=== PATIENT | male | born 1955 | race Caucasian/White ===

== ENCOUNTER 2022-12-24 23:20 | Emergency (ER) | payer MEDICARE ==
[~2022-12-24] VITALS: Ht 172.7 cm; Wt 108.9 kg
[2022-12-25 02:02] LABS: BASOPHILS ABSOLUTE AUTO 0.03 K/mm3 (0.00-0.23); BASOPHILS PERCENT AUTO 0 % (0-2); EOSINOPHILS ABSOLUTE AUTO 0.05 K/mm3 (0.00-0.68); EOSINOPHILS PERCENT AUTO 1 % (0-6); Hematocrit 42.5 % (37.0-53.0); Hemoglobin 13.5 g/dL (13.5-17.5); IMMATURE GRAN ABSOLUTE AUTO 0.01 K/mm3 (0.00-0.10); IMMATURE GRAN PERCENT AUTO 0 % (0-1); LYMPHOCYTES ABSOLUTE AUTO 1.29 K/mm3 (0.84-5.20); LYMPHOCYTES PERCENT AUTO 19 % (21-46); MONOCYTES ABSOLUTE AUTO 0.61 K/mm3 (0.16-1.47); MONOCYTES PERCENT AUTO 9 % (4-13); Mean Corpuscular HGB 29.2 pg (26.0-34.0); Mean Corpuscular HGB Conc 31.8 g/dL (31.5-36.5); Mean Corpuscular Volume 92 fL (80-100); Mean Platelet Volume 9.4 fL (9.1-12.4); NEUTROPHILS ABSOLUTE AUTO 4.85 K/mm3 (1.96-9.15); NEUTROPHILS PERCENT AUTO 71 % (41-73); Platelet Count 224 K/mm3 (150-400); RDW Coefficient Variation 13.2 % (11.7-14.2); RDW Standard Deviation 44.7 fL (35.1-46.3); Red Blood Cell Count 4.63 M/mm3 (4.30-5.90); White Blood Cell Count 6.84 K/mm3 (4.00-11.30)
[2022-12-25 02:26] LABS: Alanine Aminotransfer (ALT/SGP 20 U/L (12-78); Albumin, Blood 3.4 g/dL (3.4-5.0); Albumin/Globulin Ratio 0.8 (0.8-1.8); Alk Phos 89 U/L (50-136); Anion Gap 8 mmol/L (6-16); Aspartate Aminotrans (AST/SGOT 62 U/L (12-37); Blood Urea Nitrogen 18 mg/dL (8-24); Bun/Creatinine Ratio 13.8 (12.0-20.0); CO2, Blood 21 mmol/L (21-32); Calcium, Blood 8.4 mg/dL (8.5-10.1); Chloride, Blood 114 mmol/L (98-108); Ethanol (Alcohol), Blood, Med <3 mg/dL; Globulin, Blood 4.3 g/dL (2.2-4.0); Glomerular Filtration Rate 61 (60-); Glucose, Blood 104 mg/dL (70-99); Magnesium, Blood 2.5 mg/dL (1.6-2.4); Potassium, Blood 3.5 mmol/L (3.5-5.5); Sodium, Blood 143 mmol/L (136-145); Total Protein, Blood 7.7 g/dL (6.4-8.2)
[2022-12-25 06:07] VITALS: BP 137/83
[2022-12-26] MEDS ORDERED: ISOSORBIDE MONO30 MG PO (09:05)
[2022-12-26] MEDS ORDERED: FUROSEMIDE20 MG PO (09:05)
[2022-12-26] MEDS ORDERED: Lisinopril2.5 MG PO (09:06)
[2022-12-26] MEDS ORDERED: ATOR40TA PO (09:06)
== END 2022-12-25 08:33 | disposition left against medical advice (07) ==
LOC: ER 23:20
PROVIDERS: Student in an Organized Health Care Education/Training Program
DX: R41.0 Disorientation, unspecified (principal)
CPT/HCPCS: 70450; 80053; 82140; 83735; 84439; 84443; 85025; 93005; 93010; 99285-25; J7030

== ENCOUNTER 2022-12-26 08:41 | Inpatient (IN) | payer MEDICARE ==
[~2022-12-26] VITALS: Ht 172.7 cm; Wt 112.0 kg
[2022-12-26] MEDS ORDERED: ISOSORBIDE MONO30 MG PO (09:05)
[2022-12-26] MEDS ORDERED: FUROSEMIDE20 MG PO (09:05)
[2022-12-26] MEDS ORDERED: Lisinopril2.5 MG PO (09:06)
[2022-12-26] MEDS ORDERED: ATOR40TA PO (09:06)
[2022-12-26 09:29] LABS: BASOPHILS ABSOLUTE AUTO 0.03 K/mm3 (0.00-0.23); BASOPHILS PERCENT AUTO 0 % (0-2); EOSINOPHILS ABSOLUTE AUTO 0.04 K/mm3 (0.00-0.68); EOSINOPHILS PERCENT AUTO 1 % (0-6); Hematocrit 45.7 % (37.0-53.0); Hemoglobin 14.7 g/dL (13.5-17.5); IMMATURE GRAN ABSOLUTE AUTO 0.02 K/mm3 (0.00-0.10); IMMATURE GRAN PERCENT AUTO 0 % (0-1); LYMPHOCYTES ABSOLUTE AUTO 1.28 K/mm3 (0.84-5.20); LYMPHOCYTES PERCENT AUTO 17 % (21-46); MONOCYTES ABSOLUTE AUTO 0.53 K/mm3 (0.16-1.47); MONOCYTES PERCENT AUTO 7 % (4-13); Mean Corpuscular HGB 29.3 pg (26.0-34.0); Mean Corpuscular HGB Conc 32.2 g/dL (31.5-36.5); Mean Corpuscular Volume 91 fL (80-100); Mean Platelet Volume 9.8 fL (9.1-12.4); NEUTROPHILS ABSOLUTE AUTO 5.84 K/mm3 (1.96-9.15); NEUTROPHILS PERCENT AUTO 76 % (41-73); Platelet Count 277 K/mm3 (150-400); RDW Coefficient Variation 13.2 % (11.7-14.2); RDW Standard Deviation 44.5 fL (35.1-46.3); Red Blood Cell Count 5.01 M/mm3 (4.30-5.90); White Blood Cell Count 7.74 K/mm3 (4.00-11.30)
[2022-12-26 09:57] LABS: Albumin, Blood 3.7 g/dL (3.4-5.0); Albumin/Globulin Ratio 0.8 (0.8-1.8); Bun/Creatinine Ratio 14.5 (12.0-20.0); Calcium, Blood 9.1 mg/dL (8.5-10.1); Creatinine, Blood 1.38 mg/dL (0.60-1.20); Globulin, Blood 4.5 g/dL (2.2-4.0); Potassium, Blood 4.1 mmol/L (3.5-5.5); Total Protein, Blood 8.2 g/dL (6.4-8.2)
[2022-12-26 11:46] LABS: Anti-Xa UFH, PHA Monitoring <0.10 IU/mL; International Normalized Ratio 1.07; Prothrombin Time Results 11.2 Sec (9.7-11.5)
[2022-12-26 13:42] LABS: Free Thyroxine 0.88 ng/dL (0.70-1.60); Magnesium, Blood 2.4 mg/dL (1.6-2.4); Phosphorus, Blood 2.7 mg/dL (2.5-4.9); Thyroid Stimulating Hormone 12.9 uIU/mL (0.360-4.800)
[2022-12-26 14:12] VITALS: BP 165/116
--- NOTE | 2022-12-26 14:46 | NUR ---
NURSING PCU DAYSHIFT: Assumed care of pt at approx 1400. Arrived from ER via gurney accompanied by staff x1. Xfer w/SBA to unit bed. Mild general weakness though able to stand w/o difficulty. Able to answer most questions appropriately though is confused/forgetful at times and is poor historian. Often talks in tangents not relating to current topic or question, needs frequent redirection. Skin pale/fragile though intact w/no breakdown noted. Tele in place, NSR, no c/o CP/pressure, hypertensive, c/o 3/10 CP radiating across chest below nipple line, no noted edema. L/S cta t/o, O2 sat upper 90's on RA, denies dyspnea, no noted cough. Abd SNT, BT+, voids w/o difficulty per pt. PIV x1 at time of arrival, hep gtt infusing. No s/s of acute distress at this time. Admitting orders reviewed, cardiology consult called, 2nd PIV started, awaiting urine specimen as per d/o. Pt denies any current needs/questions, call light in reach, bed alarm set for safety purposes. Awaiting rounding from cardiology, cont to monitor for any changes.
--- NOTE | 2022-12-26 15:35 | NUR ---
XFER OF CARE: Report given to peer RN to assume care. No noted changes since admission.
--- NOTE | 2022-12-26 16:00 | NUR ---
Assumed care from Liz RN. Patient is alert and oriented and is able to communiocate his needs. He is independnet in bed with positioning. He uses call light appropriately.He states 4/10 chest pressure.
[2022-12-26 17:06] LABS: U Amphetamine Screen Not Detected; U Barbituate Screen Not Detected; U Benzodiazapine Screen Not Detected; U Buprenorphine Screen Not Detected; U Cannabinoids Screen DETECTED; U Cocaine Screen Not Detected; U Methadone Screen Not Detected; U Methamphetamine Screen Not Detected; U Opiates Screen Not Detected; U Oxycodone Screen Not Detected; U Phencyclidine Screen Not Detected; U Propoxyphene Screen Not Detected
--- NOTE | 2022-12-26 17:50 | NUR ---
Patient is sitting up in bed eating dinner. He is NPO after midnight for angio 12/27. Dr Jackson was in room and consented him and i witnessed. He has urinal at bedside and is able to use. He states odd subjects and has poor recall, and is poor historian of events prior to today. He is very flip about what he wants done as he continues to state he is ok if he dies, but did agree for angio to see what is going on. He is on RA and sats >90%. He continues to be independent with positioning. ECHO done [address] Jackson visit.
[2022-12-26 19:38] VITALS: BP 122/75
[2022-12-26 20:55] VITALS: BP 141/94
--- NOTE | 2022-12-26 21:11 | NUR ---
ASSUMPTION OF CARE THIS RN ASSUMED CARE OF PATIENT AT 1900. REPORT TAKEN FROM YADIRA MILLER. VITALS STABLE AFTER SHIFT CHANGE. PT ORIGINALLY REPORTING 3-4/10 CHEST PAIN BUT STATED IT WASN'T "BAD ENOUGH TO CARE ABOUT" AND DENIED NEEDING NITRO. AROUND 2049 PT REPORTED SOB AND 7/10 RADIATING CHEST PAIN. SL NITRO X3 GIVEN PER ORDER; SEE EMAR; PT NOW REPORTS CHEST PAIN IS RELIEVED. PT IS ALERT AND ORIENTED TO SELF, PLACE, AND YEAR. PT WITH TANGENTIAL SPEECH AND APPEARS TO BE CONFUSED ABOUT SITUATION, DESPITE KNOWING THAT HE IS IN THE HOSPITAL. PT ASKING THIS RN IF I HAVE ACCESS TO FAMILY PHOTOS ON THE COMPUTER AND STATES THAT HE DOES NOT KNOW HOW TO GET AHOLD OF ANY OF HIS FRIENDS/FAMILY. PT DENIES ALCOHOL USE AND STATES IT HAS BEEN "MONTHS" SINCE HIS LAST DRINK, HOWEVER, STATES HE "LOVES TO DRINK". PT USING URINAL INDEPENDENTLY, BUT REFUSES FOR THIS RN OR THE MONUMENT LETTERER TO CLEAN OR SEE [facility] [facility]. PT HAS BEEN COOPERATIVE WITH CARE SO FAR THIS SHIFT. BED IN LOWEST POSITION AND CALL LIGHT WITHIN REACH.
[2022-12-26 23:46] VITALS: BP 134/92
[2022-12-27 04:05] VITALS: BP 147/85
[2022-12-27 04:32] LABS: Hemoglobin 13.2 g/dL (13.5-17.5); Mean Corpuscular HGB 29.5 pg (26.0-34.0); Mean Corpuscular HGB Conc 32.2 g/dL (31.5-36.5); Mean Corpuscular Volume 92 fL (80-100); Mean Platelet Volume 9.7 fL (9.1-12.4); Platelet Count 238 K/mm3 (150-400); RDW Coefficient Variation 13.2 % (11.7-14.2); RDW Standard Deviation 44.9 fL (35.1-46.3); Red Blood Cell Count 4.48 M/mm3 (4.30-5.90); White Blood Cell Count 5.73 K/mm3 (4.00-11.30)
--- NOTE | 2022-12-27 04:36 | NUR ---
SHIFT SUMMARY SEE PREVIOUS NOTE. PT HAS DENIED CHEST PAIN/PRESSURE SINCE PREVIOUS NOTE. REPORTS CHRONIC BACK PAIN; MEDICATED PER EMAR. SR WITH HR 60'S. ON RA WITH SPO2 >92%. BP STABLE. HEP GTT INFUSING PER EMAR. AMBULATED TO BATHROOM WITH STAFF ASSISTANCE. NO CHANGES TO NEURO. PT CONTINUES TO HAVE INAPPROPRIATE CONVERSATION. CONFUSION/PARANOID AT TIMES. PT HAS BEEN MOSTLY COOPERATIVE WITH CARE AND CALLS APPROPRIATELY. BED IN LOWEST POSITION AND CALL LIGHT WITHIN REACH. PT HAS BEEN NPO SINCE MIDNIGHT. THIS RN WILL REPORT TO ONCOMING DAYSHIFT RN.
[2022-12-27 05:04] LABS: Alanine Aminotransfer (ALT/SGP 21 U/L (12-78); Albumin, Blood 3.1 g/dL (3.4-5.0); Albumin/Globulin Ratio 0.8 (0.8-1.8); Alk Phos 83 U/L (50-136); Anion Gap 8 mmol/L (6-16); Aspartate Aminotrans (AST/SGOT 34 U/L (12-37); Bilirubin, Total 0.7 mg/dL (0.1-1.0); Blood Urea Nitrogen 19 mg/dL (8-24); Bun/Creatinine Ratio 14.7 (12.0-20.0); CHOL/HDL RATIO 2.6; CO2, Blood 22 mmol/L (21-32); Calcium, Blood 8.7 mg/dL (8.5-10.1); Chloride, Blood 113 mmol/L (98-108); Cholesterol 82 mg/dL (50-200); Creatinine, Blood 1.29 mg/dL (0.60-1.20); Glomerular Filtration Rate 61 (60-); Glucose, Blood 104 mg/dL (70-99); HDL Cholesterol 31 mg/dL (>39); LDL/HDL RATIO 1.2; Low Density Lipoprotein Chol 37 mg/dL (0-110); Potassium, Blood 3.9 mmol/L (3.5-5.5); Sodium, Blood 143 mmol/L (136-145); Total Protein, Blood 7.1 g/dL (6.4-8.2); Triglycerides 70 mg/dL (30-160); Very Low Density Lipoprot Chol 14 mg/dL (6-32)
[2022-12-27 07:51] VITALS: BP 182/106
--- NOTE | 2022-12-27 09:41 | NUR ---
ASSUMED CARE OF PT AT 0710. PT IS AOX3-4, PLEASANT, COOPERATIVE WITH CARE THUS FAR. FLIGHT OF IDEAS AND VERY TALKATIVE. CAN BE SOMEWHAT LABILE AND MAKE INAPPROPRIATE COMMENTS BUT OVERALL IS VERY PLEASANT AND COOPERATIVE. SATTING WELL ON ROOM AIR. 1 PERSON ASSIST TO CHAIR. REMAINS NPO PENDING PROCEDURE TODAY BUT TOOK PO MEDS THIS MORNING WITH A BIT OF WATER. TELE ON WITH NO EVENTS THUS FAR. BP WAS MILDLY ELEVATED ON MORNING VITALS, DISCUSSED WITH ORIENTING NURSE ZOHAIB SALCEDO WHO INFORMED ADMINISTERED LOPRESSOR WOULD BE SUFFICIENT FOR MANAGEMENT. DR. DAVID THEN ORDERED AN ADDITIONAL PO DOSE WHICH WAS ADMINISTERED. PT NOW RESTING COMFORTABLY IN BED.
[2022-12-27 11:43] VITALS: BP 172/96
[2022-12-27 16:25] VITALS: BP 118/77
--- NOTE | 2022-12-27 17:08 | NUR ---
SHIFT SUMMARY. SEE PREVIOUS NOTE. PT HAD PSYCH CONSULT EARLIER TODAY WITH DR. MERA. SEE HIS NOTE FOR EXPANDED DETAILS. ANGIOGRAM FOR TODAY WAS CANCELLED AFTER PT VOICED NO INTENT TO PERFORM FOLLOW UP CARE. DIET ORDERS PUT IN PLACE AND PT IS NOW ON CARDIAC DIET. PT CONSULT ORDERED BY DR. DAVID DUE TO PT CONCERN. PT CONSULT WAS PERFORMED AND PT WAS CLEARED TO AMBULATE WITH CANE ON DISCHARGE. NO PAIN REPORTED THIS SHIFT. PT HAS CONTINUED TO SAT WELL ON ROOM AIR. TELE ON WITH NO EVENTS THIS SHIFT. BP WAS ELEVATED THROUGHOUT MOST OF SHIFT BUT HAS SINCE BEEN WELL CONTROLLED VIA PO METOPROLOL ORDERED BY DR. DAVID. MEDICAL RECORD REQUEST FAXED TO [facility] TO ACQUIRE RECORDS FROM HIS RECENT HOSPITALIZATION IN [place]. PT IS NOW SLEEPING COMFORTABLY IN BED. CALLS APPROPRIATELY FOR ASSISTANCE. BED LOCKED IN LOWEST POSITION. CALL LIGHT LEFT WITHIN REACH.
--- NOTE | 2022-12-27 19:21 | NUR ---
Update Pt self removed heparin gtt & telemetry. Pt reporting decision to leave, stating it's too loud here & his room isn't warm enough. Pt is homeless & denies having a ride or place to go. MD Crooks notified of pt desire to leave AMA. After further discussion w/ pt, pt agreeable to remain in hospital overnight. Pt however refusing to have heparin gtt & telemetry back on. MD Crooks again updated. Pharmacy also updated that pt has been off heparin gtt since about 1900 & is refusing to resume heparin gtt.
[2022-12-27 20:26] VITALS: BP 130/80
--- NOTE | 2022-12-27 20:49 | NUR ---
ASSUMPTION OF CARE/PATIENT UPDATE THIS RN ASSUMED CARE OF PATIENT AT 1900. PT A&O X4, CONFUSED ON SPECIFIC DAY, KNOWS YEAR/MONTH. PT PARANOID AND AGGITATED BY STAFF. PT REPORTED THAT HE WAS GOING TO LEAVE AMA, BUT AGREED TO STAY THE NIGHT. PT REFUSING TO WEAR TELE AND STAY ON HEPARIN GTT. MD GONZALEZ MADE AWARE. MD GONZALEZ WITH ORDER TO MAKE PT PCU WITH NO TELE STATUS. MD GONZALEZ VERBALIZED UNDERSTANDING THAT THE PT WAS REFUSING HEPARIN. MD GONZALEZ TO BEDSIDE TO ASSESS PATIENT; MD GONZALEZ WITH ORDERS FOR PO ATIVAN FOR SLEEP/ANXIETY. HRR REG IN THE 60'S. ON RA WITH SPO2 >94%; REFUSED TO KEEP PULSE OX ON FINGER FOR MONITORING THROUGH THE NIGHT. BP STABLE. PT DENIES CHEST PAIN AT THIS TIME. REPORTING BACK PAIN WHICH APPEARS TO BE CHRONIC. RESPIRATIONS EVEN/UNLABORED. TANGENTIAL SPEECH NOTED. PT IS DIFFICULT TO FOCUS ATTENTION. EASILY AGGITATED BY ASSESSMENT DONE BY NURSE. BED IN LOWEST POSITION AND CALL LIGHT WITHIN REACH.
[2022-12-28 00:13] VITALS: BP 149/106
[2022-12-28 02:40] VITALS: BP 171/107
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
[2022-12-28 06:06] VITALS: BP 152/110
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
--- NOTE | 2022-12-28 06:47 | NUR ---
UPDATE PT REPORTED TO CLINICAL COORDINATOR CRISS MILLER THAT HE WOULD LIKE TO LEAVE AMA. PT SIGNED AMA FORM. THIS RN REMOVED BOTH IV'S. CRISS MILLER ASSISTING PATIENT WITH BELONGINGS AND TAKING PATIENT OUT IN WHEELCHAIR. PT REPORTS SORENESS IN BACK, XRAY CLEAR PER MD HANSON. NO OTHER ACUTE DISTRESS NOTED.
[2022-12-29] MEDS ORDERED: ASPI81CH PO (09:58)
[2022-12-29] MEDS ORDERED: CARV6.25 PO (09:59)
== END 2022-12-28 07:13 | disposition left against medical advice (07) | DRG 281 ==
LOC: ER 08:41 → PCU 12:35
PROVIDERS: Emergency Medicine; ADMIT Internal Medicine
DX: I21.4 Non-ST elevation (NSTEMI) myocardial infarction (principal); N17.9 Acute kidney failure, unspecified; Z59.00 Homelessness unspecified; Z66 Do not resuscitate; I10 Essential (primary) hypertension; E66.9 Obesity, unspecified; Z68.34 Body mass index [BMI] 34.0-34.9, adult; I27.20 Pulmonary hypertension, unspecified; I08.1 Rheumatic disorders of both mitral and tricuspid valves; R94.31 Abnormal electrocardiogram [ECG] [EKG]; E03.8 Other specified hypothyroidism; R74.01 Elevation of levels of liver transaminase levels; G47.00 Insomnia, unspecified; F03.90 Unspecified dementia, unspecified severity, without behavioral disturbance, psychotic disturbance, mood disturbance, and anxiety; F31.9 Bipolar disorder, unspecified; I16.0 Hypertensive urgency; F41.9 Anxiety disorder, unspecified; Z53.29 Procedure and treatment not carried out because of patient's decision for other reasons; F12.90 Cannabis use, unspecified, uncomplicated; Z79.01 Long term (current) use of anticoagulants; Z79.899 Other long term (current) drug therapy; Z87.891 Personal history of nicotine dependence
CPT/HCPCS: 36415; 71045; 72100; 80053; 80061; 83735; 83880; 84100; 84439; 84443; 84484; 85025; 85027; 85379; 85520; 85610; 85730; 93005; 93010; 93306; 96365; 96366; 96376; 97116; 97162; 99285-25; A9270; J1644

== ENCOUNTER 2022-12-28 18:03 | Observation (INO) | payer MEDICARE ==
[~2022-12-28] VITALS: Ht 175.3 cm; Wt 112.0 kg
[~2022-12-28 18:03] MED LIST: ATOR40TA PO; FUROSEMIDE20 MG PO; ISOSORBIDE MONO30 MG PO; Lisinopril2.5 MG PO
[2022-12-28 18:32] LABS: BASOPHILS ABSOLUTE AUTO 0.02 K/mm3 (0.00-0.23); BASOPHILS PERCENT AUTO 0 % (0-2); EOSINOPHILS ABSOLUTE AUTO 0.04 K/mm3 (0.00-0.68); EOSINOPHILS PERCENT AUTO 1 % (0-6); Hematocrit 40.9 % (37.0-53.0); Hemoglobin 12.9 g/dL (13.5-17.5); IMMATURE GRAN ABSOLUTE AUTO 0.02 K/mm3 (0.00-0.10); IMMATURE GRAN PERCENT AUTO 0 % (0-1); LYMPHOCYTES PERCENT AUTO 13 % (21-46); MONOCYTES PERCENT AUTO 6 % (4-13); Mean Corpuscular HGB Conc 31.5 g/dL (31.5-36.5); Mean Corpuscular Volume 92 fL (80-100); Mean Platelet Volume 9.8 fL (9.1-12.4); NEUTROPHILS ABSOLUTE AUTO 5.44 K/mm3 (1.96-9.15); NEUTROPHILS PERCENT AUTO 80 % (41-73); Platelet Count 250 K/mm3 (150-400); RDW Coefficient Variation 13.2 % (11.7-14.2); RDW Standard Deviation 45.1 fL (35.1-46.3); Red Blood Cell Count 4.45 M/mm3 (4.30-5.90); White Blood Cell Count 6.82 K/mm3 (4.00-11.30)
[2022-12-28 18:47] LABS: Albumin, Blood 3.1 g/dL (3.4-5.0); Albumin/Globulin Ratio 0.8 (0.8-1.8); Bilirubin, Total 0.7 mg/dL (0.1-1.0); Bun/Creatinine Ratio 15.8 (12.0-20.0); Calcium, Blood 8.6 mg/dL (8.5-10.1); Creatinine, Blood 1.2 mg/dL (0.60-1.20); Magnesium, Blood 2.1 mg/dL (1.6-2.4); Potassium, Blood 3.8 mmol/L (3.5-5.5); Total Protein, Blood 7.1 g/dL (6.4-8.2)
[2022-12-28 19:55] LABS: Base Excess Venous -0.3 mmol/L; PCO2 Venous 48.8 mmHg (38-42); pH Blood Venous 7.33 (7.34-7.37)
[2022-12-28 23:46] VITALS: BP 160/105
[2022-12-29 03:39] VITALS: BP 146/84
[2022-12-29 05:36] LABS: BASOPHILS ABSOLUTE AUTO 0.02 K/mm3 (0.00-0.23); BASOPHILS PERCENT AUTO 0 % (0-2); EOSINOPHILS ABSOLUTE AUTO 0.08 K/mm3 (0.00-0.68); EOSINOPHILS PERCENT AUTO 2 % (0-6); Hematocrit 41.7 % (37.0-53.0); Hemoglobin 13.3 g/dL (13.5-17.5); IMMATURE GRAN ABSOLUTE AUTO 0.02 K/mm3 (0.00-0.10); IMMATURE GRAN PERCENT AUTO 0 % (0-1); LYMPHOCYTES ABSOLUTE AUTO 1.36 K/mm3 (0.84-5.20); LYMPHOCYTES PERCENT AUTO 25 % (21-46); MONOCYTES ABSOLUTE AUTO 0.42 K/mm3 (0.16-1.47); MONOCYTES PERCENT AUTO 8 % (4-13); Mean Corpuscular HGB Conc 31.9 g/dL (31.5-36.5); Mean Corpuscular Volume 91 fL (80-100); Mean Platelet Volume 9.8 fL (9.1-12.4); NEUTROPHILS PERCENT AUTO 65 % (41-73); Platelet Count 260 K/mm3 (150-400); RDW Coefficient Variation 13.2 % (11.7-14.2); RDW Standard Deviation 44.4 fL (35.1-46.3); Red Blood Cell Count 4.58 M/mm3 (4.30-5.90)
[2022-12-29 06:37] LABS: Bun/Creatinine Ratio 13.2 (12.0-20.0); Calcium, Blood 9.2 mg/dL (8.5-10.1); Creatinine, Blood 1.29 mg/dL (0.60-1.20); Potassium, Blood 3.4 mmol/L (3.5-5.5)
--- NOTE | 2022-12-29 07:31 | NUR ---
PT REQUESTING TO MOVE TO BEDSIDE CHAIR. PT REPORTS RIGHT UPPER CHEST PAIN WHICH HE DESCRIBES TIGHTNESS. WHEN ASKED IF HE WAS DIZZY OR LIGHTHEADED PT STATED "I'M BLONDE, I'M ALWAYS DIZZY". NO HEART RHYTHM CHANGES PER TIE IN MACHINE OPERATOR. PT ABLE TO MOVE HIMSELF TO THE RECLINER WITH STANDBY ASSIST ONLY.
--- NOTE | 2022-12-29 07:35 | NUR ---
Shift Summary Pt admitted from ED for chest pain. Pt stated 8/10 chest pain, rcvd IV morphine and during reassessment said pain was still 8/10 while appearing completely comfortable. Pt hallucinated a spider crawling across the ceiling, and when asked about ETOH stated he drinks a 5th a day. Pt scored 5 on CIWA assassment. Pt is AOx3, sometimes unsure about the time. On tele running sinus rythm, no event calls from telemetry. Troponin is trending down from last admit 2 days ago, which per report was 1200, it was at 316 on admit to this unit.
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
[2022-12-29] MEDS ORDERED: ASPI81CH PO ×2 (09:58)
[2022-12-29] MEDS ORDERED: CARV6.25 PO ×2 (09:59)
--- NOTE | 2022-12-29 11:47 | NUR ---
DISCHARGE INSTRUCTIONS DISCUSSED WITH PT AND PRINTED COPY GIVEN TO PT. PRESCRIPTIONS FAXED TO [facility] AT PT'S REQUEST. PT REQUESTED [facility] TO TAKE HIM TO THE HOTEL NEXT TO [facility]. APPRECIATE SECURITY TRANSPORTING PT TO [facility] TO AWAIT ARRIVAL OF TAX[facility]. ALL PERSONAL BELONGINGS SENT WITH PT. IV'S REMOVED.
== END 2022-12-29 11:52 | disposition home or self-care (01) ==
LOC: ER 18:03 → MEDS 18:04 → ENPENDDIS 12-29 08:18 → MEDS 12-29 11:52
PROVIDERS: Student in an Organized Health Care Education/Training Program; ADMIT Internal Medicine
DX: I21.A1 Myocardial infarction type 2 (principal); I25.2 Old myocardial infarction; M48.56XA Collapsed vertebra, not elsewhere classified, lumbar region, initial encounter for fracture; R45.6 Violent behavior; Z72.0 Tobacco use; Z59.00 Homelessness unspecified; E03.8 Other specified hypothyroidism
CPT/HCPCS: 36415; 71046; 72100; 73600; 80048; 80053; 82803; 83735; 83880; 84484; 85025; 93005; 93010; 96374; 99285-25; A9270; G0378; J2270

== ENCOUNTER 2022-12-29 13:22 | Emergency (ER) | payer MEDICARE ==
[~2022-12-29] VITALS: Ht 167.6 cm; Wt 75.8 kg
[~2022-12-29 13:22] MED LIST changes: +ASPI81CH PO; +CARV6.25 PO
[2022-12-29 14:05] LABS: BASOPHILS ABSOLUTE AUTO 0.02 K/mm3 (0.00-0.23); BASOPHILS PERCENT AUTO 0 % (0-2); EOSINOPHILS PERCENT AUTO 2 % (0-6); Hematocrit 42.4 % (37.0-53.0); Hemoglobin 13.6 g/dL (13.5-17.5); IMMATURE GRAN ABSOLUTE AUTO 0.02 K/mm3 (0.00-0.10); IMMATURE GRAN PERCENT AUTO 0 % (0-1); LYMPHOCYTES ABSOLUTE AUTO 0.84 K/mm3 (0.84-5.20); LYMPHOCYTES PERCENT AUTO 14 % (21-46); MONOCYTES ABSOLUTE AUTO 0.43 K/mm3 (0.16-1.47); MONOCYTES PERCENT AUTO 7 % (4-13); Mean Corpuscular HGB 28.8 pg (26.0-34.0); Mean Corpuscular HGB Conc 32.1 g/dL (31.5-36.5); Mean Corpuscular Volume 90 fL (80-100); NEUTROPHILS ABSOLUTE AUTO 4.82 K/mm3 (1.96-9.15); NEUTROPHILS PERCENT AUTO 77 % (41-73); Platelet Count 286 K/mm3 (150-400); RDW Coefficient Variation 13.2 % (11.7-14.2); RDW Standard Deviation 43.4 fL (35.1-46.3); Red Blood Cell Count 4.73 M/mm3 (4.30-5.90); White Blood Cell Count 6.23 K/mm3 (4.00-11.30)
[2022-12-29 14:30] LABS: Albumin, Blood 3.6 g/dL (3.4-5.0); Albumin/Globulin Ratio 0.9 (0.8-1.8); Bilirubin, Total 0.9 mg/dL (0.1-1.0); Bun/Creatinine Ratio 15.3 (12.0-20.0); Calcium, Blood 9.3 mg/dL (8.5-10.1); Creatinine, Blood 1.18 mg/dL (0.60-1.20); Globulin, Blood 4.2 g/dL (2.2-4.0); Total Protein, Blood 7.8 g/dL (6.4-8.2)
[2022-12-29 15:45] VITALS: BP 186/114
== END 2022-12-29 15:58 | disposition home or self-care (01) ==
LOC: ER 13:22
PROVIDERS: Student in an Organized Health Care Education/Training Program
DX: R07.89 Other chest pain (principal); Z79.899 Other long term (current) drug therapy; Z79.82 Long term (current) use of aspirin; I10 Essential (primary) hypertension; G47.00 Insomnia, unspecified
CPT/HCPCS: 71046; 80053; 84484; 85025; 93005; 93010; 99284-25; A9270

== ENCOUNTER 2022-12-29 17:43 | Emergency (ER) | payer MEDICARE ==
[~2022-12-29] VITALS: Ht 172.7 cm; Wt 113.4 kg
[2022-12-29 18:06] VITALS: BP 161/93
== END 2022-12-29 18:08 | disposition home or self-care (01) ==
LOC: ER 17:43
DX: M54.2 Cervicalgia (principal); I10 Essential (primary) hypertension; Z91.81 History of falling; Z79.899 Other long term (current) drug therapy; Z79.82 Long term (current) use of aspirin
CPT/HCPCS: 99283

== ENCOUNTER 2022-12-29 21:35 | Emergency (ER) | payer MEDICARE ==
[~2022-12-29] VITALS: Ht 175.3 cm; Wt 104.3 kg
[2022-12-29 21:43] VITALS: BP 211/139
== END 2022-12-29 23:30 | disposition home or self-care (01) ==
LOC: ER 21:35
DX: R07.9 Chest pain, unspecified (principal); R77.8 Other specified abnormalities of plasma proteins; Z59.00 Homelessness unspecified; I25.2 Old myocardial infarction; I10 Essential (primary) hypertension; G47.00 Insomnia, unspecified; Z79.82 Long term (current) use of aspirin; Z79.899 Other long term (current) drug therapy
CPT/HCPCS: 84484; 93005; 93010; 99283-25; A9270

== ENCOUNTER 2022-12-30 20:12 | Emergency (ER) | payer MEDICARE ==
[~2022-12-30] VITALS: Ht 175.3 cm; Wt 104.3 kg
[2022-12-31] VITALS: BP 132/120
== END 2022-12-31 00:23 | disposition home or self-care (01) ==
LOC: ER 20:12
DX: R07.89 Other chest pain (principal); R06.02 Shortness of breath; I25.2 Old myocardial infarction; I10 Essential (primary) hypertension; Z91.148 Patient's other noncompliance with medication regimen for other reason; Z79.82 Long term (current) use of aspirin; Z79.899 Other long term (current) drug therapy; Z87.898 Personal history of other specified conditions
CPT/HCPCS: 71046; 84484; 93005; 93010; 99285-25; A9270

== ENCOUNTER 2023-01-02 20:42 | Emergency (ER) | payer MEDICARE ==
[~2023-01-02] VITALS: Ht 182.9 cm; Wt 86.2 kg
[2023-01-02 20:47] VITALS: BP 159/991
== END 2023-01-02 20:45 | disposition home or self-care (01) ==
LOC: ER 20:42
DX: F41.9 Anxiety disorder, unspecified (principal); Z79.899 Other long term (current) drug therapy; Z79.82 Long term (current) use of aspirin
CPT/HCPCS: 99283

== ENCOUNTER 2023-01-06 04:05 | Emergency (ER) | payer MEDICARE ==
[~2023-01-06] VITALS: Ht 172.7 cm; Wt 127.0 kg
[2023-01-06 04:06] VITALS: BP 146/109
== END 2023-01-06 04:50 | disposition home or self-care (01) ==
LOC: ER 04:05
DX: R07.9 Chest pain, unspecified (principal); I10 Essential (primary) hypertension; I25.2 Old myocardial infarction; Z79.899 Other long term (current) drug therapy; Z79.82 Long term (current) use of aspirin
CPT/HCPCS: 80053; 84484; 85025; 93005; 93010; 99285-25

== ENCOUNTER 2023-01-07 16:58 | Inpatient (IN) | payer MEDICARE ==
[~2023-01-07] VITALS: Ht 172.7 cm; Wt 108.0 kg
[2023-01-07 17:21] LABS: BASOPHILS ABSOLUTE AUTO 0.02 K/mm3 (0.00-0.23); BASOPHILS PERCENT AUTO 0 % (0-2); EOSINOPHILS ABSOLUTE AUTO 0.03 K/mm3 (0.00-0.68); EOSINOPHILS PERCENT AUTO 0 % (0-6); Hematocrit 43.7 % (37.0-53.0); Hemoglobin 14.4 g/dL (13.5-17.5); IMMATURE GRAN ABSOLUTE AUTO 0.03 K/mm3 (0.00-0.10); IMMATURE GRAN PERCENT AUTO 0 % (0-1); LYMPHOCYTES ABSOLUTE AUTO 1.92 K/mm3 (0.84-5.20); LYMPHOCYTES PERCENT AUTO 23 % (21-46); MONOCYTES ABSOLUTE AUTO 0.54 K/mm3 (0.16-1.47); MONOCYTES PERCENT AUTO 7 % (4-13); Mean Platelet Volume 9.7 fL (9.1-12.4); NEUTROPHILS ABSOLUTE AUTO 5.81 K/mm3 (1.96-9.15); NEUTROPHILS PERCENT AUTO 70 % (41-73); Platelet Count 237 K/mm3 (150-400); RDW Coefficient Variation 13.8 % (11.7-14.2); RDW Standard Deviation 44.8 fL (35.1-46.3); Red Blood Cell Count 4.96 M/mm3 (4.30-5.90); White Blood Cell Count 8.35 K/mm3 (4.00-11.30)
[2023-01-07 17:23] LABS: Mean Corpuscular Volume 88 fL (80-100)
[2023-01-07 17:39] LABS: Albumin, Blood 3.6 g/dL (3.4-5.0); Albumin/Globulin Ratio 0.9 (0.8-1.8); Bilirubin, Total 0.9 mg/dL (0.1-1.0); Bun/Creatinine Ratio 12.1 (12.0-20.0); Creatinine, Blood 1.41 mg/dL (0.60-1.20); Globulin, Blood 4.2 g/dL (2.2-4.0); Potassium, Blood 3.8 mmol/L (3.5-5.5); Total Protein, Blood 7.8 g/dL (6.4-8.2)
[2023-01-07 22:58] VITALS: BP 172/129
[2023-01-07 23:57] VITALS: BP 170/130
[2023-01-08 00:13] VITALS: BP 169/122
--- NOTE | 2023-01-08 00:47 | NUR ---
ARRIVAL TO UNIT PATIENT ARRIVED TO UNIT VIA GURNEY AT APPROX 2250. PATIENT TRANSFERRED TO HOSPITAL BED VIA SLIDER SHEET. PATIENT IS AOX2-3. MINIMAL UNDERSTANDING OF CURRENT SITUATION. ALTERNATES BETWEEN PERIODS OF SLEEP AND MOANING OUT IN PAIN. UPON ARRIVAL TO UNIT, PATIENT REPORTED 5/10 CHEST PAIN/PRESSURE RADIATING TO L ARM. BP ELEVATED, SBP 170's. TELEMETRY SHOWING SINUS TACH 120's W/ POSSIBLE ST ELEVATION. EKG OBTAINED. THERAPEUTIC STRATEGY LEAD CONTACTED NADYA IRWIN ORDERS PER EMAR. CHEST PAIN INCREASE TO 7/10. THIS RN ADMINISTERED PO METOPROLOL, LISINOPRIL. X1 DOSE OF SUBLINGUAL NITRO W/ SOME RELIEF. IV DOSE OF FENTANYL ADMINISTERED PER EMAR W/ RELIEF, 04/28. RATE DECREASE TO 110's. HEPARIN GTT IN PROCESS. IS CURRENTLY ON 2L VIA NASAL CANNULA, SATS >90%. REPORTS SHORTNESS OF BREATH, DYSPNEIC. EXPERIENCES INCREASING ANXIETY IN REGARDS TO PAIN. BED ALARM IN PLACE. IS COOPERATIVE WITH CARE AT THIS TIME. CALL LIGHT IN REACH.
--- NOTE | 2023-01-08 01:35 | NUR ---
UPDATE PATIENT REPORTING INCREASED ABDOMINAL PAIN. BLADDER SCAN PERFORMED, 490ML NOTED. PATIENT UNABLE TO VOID IN URINAL. THIS RN PERFORMED STRAIGHT CATH, 500ML OUT. 1 SMALL INCONTINENT VOID POST CATH REMOVAL. ATTENDS AND LINEN CHANGE PERFORMED. PATIENT EXPRESSING SOME RELIEF. CALL LIGHT IN REACH.
[2023-01-08 01:36] LABS: Anti-Xa UFH, PHA Monitoring <0.10 IU/mL; International Normalized Ratio 1.02; Prothrombin Time Results 10.7 Sec (9.7-11.5)
[2023-01-08 02:05] VITALS: BP 138/115
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
== END 2023-01-08 06:15 | disposition left against medical advice (07) | DRG 280 ==
LOC: ER 16:58 → PCU 22:36
PROVIDERS: Student in an Organized Health Care Education/Training Program; ADMIT Internal Medicine
DX: I21.4 Non-ST elevation (NSTEMI) myocardial infarction (principal); I50.33 Acute on chronic diastolic (congestive) heart failure; Z59.00 Homelessness unspecified; F12.90 Cannabis use, unspecified, uncomplicated; I11.0 Hypertensive heart disease with heart failure; Z79.82 Long term (current) use of aspirin; Z91.148 Patient's other noncompliance with medication regimen for other reason; Z53.29 Procedure and treatment not carried out because of patient's decision for other reasons; Z23 Encounter for immunization
CPT/HCPCS: 36415; 71260; 74177; 80053; 83690; 83735; 83880; 84484; 85025; 85379; 85520; 85610; 85730; 93005; 93010; 96361; 96374; 96375; 99285-25; A9270; J1170; J1644; J1940; J2060; J3010; J7030; Q2036; Q9967

== ENCOUNTER 2023-01-09 21:07 | Emergency (ER) | payer MEDICARE ==
[~2023-01-09] VITALS: Ht 172.7 cm; Wt 81.7 kg
[2023-01-09 21:30] VITALS: BP 149/116
== END 2023-01-10 01:45 | disposition left against medical advice (07) ==
LOC: ER 21:07
DX: Z53.21 Procedure and treatment not carried out due to patient leaving prior to being seen by health care provider (principal)
CPT/HCPCS: 93005; 93010; 99282-25

== ENCOUNTER 2023-01-12 18:01 | Emergency (ER) | payer MEDICARE ==
[~2023-01-12] VITALS: Ht 177.8 cm; Wt 95.7 kg
[2023-01-12 18:10] VITALS: BP 95/74
[2023-01-12 18:53] LABS: BASOPHILS ABSOLUTE AUTO 0.02 K/mm3 (0.00-0.23); BASOPHILS PERCENT AUTO 0 % (0-2); EOSINOPHILS ABSOLUTE AUTO 0.01 K/mm3 (0.00-0.68); EOSINOPHILS PERCENT AUTO 0 % (0-6); Hematocrit 43.1 % (37.0-53.0); IMMATURE GRAN ABSOLUTE AUTO 0.07 K/mm3 (0.00-0.10); IMMATURE GRAN PERCENT AUTO 1 % (0-1); LYMPHOCYTES ABSOLUTE AUTO 1.19 K/mm3 (0.84-5.20); LYMPHOCYTES PERCENT AUTO 13 % (21-46); MONOCYTES ABSOLUTE AUTO 0.65 K/mm3 (0.16-1.47); MONOCYTES PERCENT AUTO 7 % (4-13); Mean Corpuscular HGB 28.9 pg (26.0-34.0); Mean Corpuscular HGB Conc 32.5 g/dL (31.5-36.5); Mean Corpuscular Volume 89 fL (80-100); NEUTROPHILS ABSOLUTE AUTO 7.29 K/mm3 (1.96-9.15); NEUTROPHILS PERCENT AUTO 79 % (41-73); RDW Coefficient Variation 14.9 % (11.7-14.2); RDW Standard Deviation 47.5 fL (35.1-46.3); Red Blood Cell Count 4.84 M/mm3 (4.30-5.90); White Blood Cell Count 9.23 K/mm3 (4.00-11.30)
[2023-01-12 19:26] LABS: Alanine Aminotransfer (ALT/SGP 311 U/L (12-78); Albumin, Blood 3.7 g/dL (3.4-5.0); Albumin/Globulin Ratio 0.9 (0.8-1.8); Alk Phos 253 U/L (50-136); Anion Gap 11 mmol/L (6-16); Aspartate Aminotrans (AST/SGOT 592 U/L (12-37); Bilirubin, Total 2.2 mg/dL (0.1-1.0); Blood Urea Nitrogen 59 mg/dL (8-24); Bun/Creatinine Ratio 31.7 (12.0-20.0); CO2, Blood 23 mmol/L (21-32); Calcium, Blood 9.2 mg/dL (8.5-10.1); Chloride, Blood 101 mmol/L (98-108); Creatinine, Blood 1.86 mg/dL (0.60-1.20); Ethanol (Alcohol), Blood, Med <3 mg/dL; Globulin, Blood 4.2 g/dL (2.2-4.0); Glomerular Filtration Rate 39 (60-); Glucose, Blood 117 mg/dL (70-99); Potassium, Blood 4.3 mmol/L (3.5-5.5); Sodium, Blood 135 mmol/L (136-145); Total Protein, Blood 7.9 g/dL (6.4-8.2)
== END 2023-01-12 18:44 | disposition home or self-care (01) ==
LOC: ER 18:01
PROVIDERS: Student in an Organized Health Care Education/Training Program
DX: Z00.8 Encounter for other general examination (principal); Z79.899 Other long term (current) drug therapy; Z79.82 Long term (current) use of aspirin; I25.2 Old myocardial infarction; I10 Essential (primary) hypertension
CPT/HCPCS: 71046; 80053; 85025; 93005; 93010; 99285-25

== ENCOUNTER 2023-01-20 17:29 | Emergency (ER) | payer MEDICARE ==
[~2023-01-20] VITALS: Ht 172.7 cm; Wt 127.0 kg
[2023-01-20 17:35] VITALS: BP 149/77
[2023-01-20 18:03] LABS: BASOPHILS ABSOLUTE AUTO 0.01 K/mm3 (0.00-0.23); BASOPHILS PERCENT AUTO 0 % (0-2); EOSINOPHILS ABSOLUTE AUTO 0.01 K/mm3 (0.00-0.68); EOSINOPHILS PERCENT AUTO 0 % (0-6); Hematocrit 49.9 % (37.0-53.0); Hemoglobin 15.5 g/dL (13.5-17.5); IMMATURE GRAN ABSOLUTE AUTO 0.04 K/mm3 (0.00-0.10); IMMATURE GRAN PERCENT AUTO 0 % (0-1); LYMPHOCYTES PERCENT AUTO 6 % (21-46); MONOCYTES ABSOLUTE AUTO 0.56 K/mm3 (0.16-1.47); MONOCYTES PERCENT AUTO 4 % (4-13); Mean Corpuscular HGB 28.8 pg (26.0-34.0); Mean Corpuscular HGB Conc 31.1 g/dL (31.5-36.5); Mean Corpuscular Volume 93 fL (80-100); Mean Platelet Volume 10.7 fL (9.1-12.4); NEUTROPHILS ABSOLUTE AUTO 12.73 K/mm3 (1.96-9.15); NEUTROPHILS PERCENT AUTO 90 % (41-73); Platelet Count 236 K/mm3 (150-400); Red Blood Cell Count 5.38 M/mm3 (4.30-5.90); White Blood Cell Count 14.15 K/mm3 (4.00-11.30)
[2023-01-20 18:20] LABS: Albumin, Blood 3.3 g/dL (3.4-5.0); Albumin/Globulin Ratio 0.7 (0.8-1.8); Bilirubin, Total 1.1 mg/dL (0.1-1.0); Bun/Creatinine Ratio 52.5 (12.0-20.0); Calcium, Blood 8.9 mg/dL (8.5-10.1); Creatinine, Blood 2.02 mg/dL (0.60-1.20); Globulin, Blood 4.5 g/dL (2.2-4.0); Potassium, Blood 4.2 mmol/L (3.5-5.5); Total Protein, Blood 7.8 g/dL (6.4-8.2)
== END 2023-01-20 19:28 | disposition home or self-care (01) ==
LOC: ER 17:29
PROVIDERS: Student in an Organized Health Care Education/Training Program
DX: Z00.00 Encounter for general adult medical examination without abnormal findings (principal); I10 Essential (primary) hypertension; I25.2 Old myocardial infarction; Z79.899 Other long term (current) drug therapy; Z79.82 Long term (current) use of aspirin
CPT/HCPCS: 36415; 80053; 85025; 99283

== ENCOUNTER 2023-01-24 15:18 | Emergency (ER) | payer MEDICARE ==
[~2023-01-24] VITALS: Ht 170.2 cm; Wt 145.2 kg
[2023-01-24 16:21] LABS: BASOPHILS ABSOLUTE AUTO 0.01 K/mm3 (0.00-0.23); BASOPHILS PERCENT AUTO 0 % (0-2); EOSINOPHILS ABSOLUTE AUTO 0.07 K/mm3 (0.00-0.68); EOSINOPHILS PERCENT AUTO 1 % (0-6); Hemoglobin 15.2 g/dL (13.5-17.5); IMMATURE GRAN ABSOLUTE AUTO 0.06 K/mm3 (0.00-0.10); IMMATURE GRAN PERCENT AUTO 0 % (0-1); LYMPHOCYTES ABSOLUTE AUTO 0.63 K/mm3 (0.84-5.20); LYMPHOCYTES PERCENT AUTO 4 % (21-46); MONOCYTES ABSOLUTE AUTO 0.57 K/mm3 (0.16-1.47); MONOCYTES PERCENT AUTO 4 % (4-13); Mean Corpuscular HGB 28.7 pg (26.0-34.0); Mean Corpuscular HGB Conc 31.7 g/dL (31.5-36.5); Mean Corpuscular Volume 91 fL (80-100); Mean Platelet Volume 11.1 fL (9.1-12.4); NEUTROPHILS PERCENT AUTO 91 % (41-73); Platelet Count 218 K/mm3 (150-400); RDW Coefficient Variation 15.7 % (11.7-14.2); RDW Standard Deviation 50.4 fL (35.1-46.3); Red Blood Cell Count 5.29 M/mm3 (4.30-5.90); White Blood Cell Count 14.74 K/mm3 (4.00-11.30)
[2023-01-24 16:35] LABS: Albumin, Blood 3.3 g/dL (3.4-5.0); Albumin/Globulin Ratio 0.7 (0.8-1.8); Bilirubin, Total 1.2 mg/dL (0.1-1.0); Bun/Creatinine Ratio 51.1 (12.0-20.0); Calcium, Blood 8.6 mg/dL (8.5-10.1); Creatinine, Blood 1.74 mg/dL (0.60-1.20); Globulin, Blood 4.5 g/dL (2.2-4.0); Potassium, Blood 4.1 mmol/L (3.5-5.5); Total Protein, Blood 7.8 g/dL (6.4-8.2)
[2023-01-24 20:19] VITALS: BP 86/73
== END 2023-01-24 20:21 | disposition home or self-care (01) ==
LOC: ER 15:18
PROVIDERS: Physician Assistant
DX: Z00.8 Encounter for other general examination (principal); R06.02 Shortness of breath; D72.829 Elevated white blood cell count, unspecified; I10 Essential (primary) hypertension; Z79.82 Long term (current) use of aspirin; Z79.899 Other long term (current) drug therapy
CPT/HCPCS: 36415; 80053; 85025; 99283

== ENCOUNTER 2023-01-25 11:44 | Emergency (ER) | payer MEDICARE ==
[~2023-01-25] VITALS: Ht 165.1 cm; Wt 68.0 kg
[2023-01-25 12:14] VITALS: BP 105/79
== END 2023-01-25 12:30 | disposition home or self-care (01) ==
LOC: ER 11:44
DX: Z00.00 Encounter for general adult medical examination without abnormal findings (principal); I10 Essential (primary) hypertension; G47.00 Insomnia, unspecified; I25.2 Old myocardial infarction; Z79.82 Long term (current) use of aspirin; Z79.899 Other long term (current) drug therapy
CPT/HCPCS: 99282

== ENCOUNTER 2023-01-26 13:19 | Emergency (ER) | payer MEDICARE ==
[~2023-01-26] VITALS: Ht 177.8 cm; Wt 113.4 kg
[2023-01-26 16:54] VITALS: BP 110/72
== END 2023-01-26 17:00 | disposition home or self-care (01) ==
LOC: ER 13:19
DX: R52 Pain, unspecified (principal); Z59.00 Homelessness unspecified; Z79.82 Long term (current) use of aspirin; Z79.899 Other long term (current) drug therapy
CPT/HCPCS: 99284

== ENCOUNTER 2023-01-27 14:30 | Emergency (ER) | payer MEDICARE ==
[~2023-01-27] VITALS: Ht 180.3 cm; Wt 113.4 kg
[2023-01-27 15:00] LABS: Calcium, Ionized (POC) 0.66 mmol/L (1.10-1.46); Chloride (POC) 120 mmol/L (98-108); Creatinine (POC) 0.9 mg/dL (0.8-1.3); Glucose (ISTAT POC) 102 mg/dL (70-99); Hemoglobin (POC) 10.5 g/dL (13.5-17.5); Potassium (POC) 2.3 mmol/L (3.5-5.5); Sodium (POC) 148 mmol/L (135-148); Total CO2 (POC) 13 mmol/L (21-32)
[2023-01-27 15:06] LABS: BASOPHILS PERCENT AUTO 0 % (0-2); EOSINOPHILS PERCENT AUTO 0 % (0-6); Hematocrit 33.6 % (37.0-53.0); Hemoglobin 10.4 g/dL (13.5-17.5); IMMATURE GRAN ABSOLUTE AUTO 0.03 K/mm3 (0.00-0.10); IMMATURE GRAN PERCENT AUTO 0 % (0-1); LYMPHOCYTES ABSOLUTE AUTO 0.47 K/mm3 (0.84-5.20); LYMPHOCYTES PERCENT AUTO 7 % (21-46); MONOCYTES ABSOLUTE AUTO 0.13 K/mm3 (0.16-1.47); MONOCYTES PERCENT AUTO 2 % (4-13); Mean Corpuscular HGB 28.7 pg (26.0-34.0); Mean Corpuscular Volume 93 fL (80-100); Mean Platelet Volume 12.1 fL (9.1-12.4); NEUTROPHILS ABSOLUTE AUTO 6.25 K/mm3 (1.96-9.15); NEUTROPHILS PERCENT AUTO 91 % (41-73); Platelet Count 104 K/mm3 (150-400); RDW Coefficient Variation 15.6 % (11.7-14.2); RDW Standard Deviation 51.4 fL (35.1-46.3); Red Blood Cell Count 3.63 M/mm3 (4.30-5.90); White Blood Cell Count 6.88 K/mm3 (4.00-11.30)
[2023-01-27 15:16] LABS: Source, Urine Foley catheter
[2023-01-27 15:19] LABS: Appearance, Urine Clear (Clear); Bilirubin, Urine Neg (Neg); Blood, Urine Neg (Neg); Color, Urine Yellow (P-Yellow); Glucose Qualitative, Urine Neg (Neg); Ketones, Urine Neg (Neg); Leukocyte Esterase, Urine Neg (Neg); Nitrite, Urine Neg (Neg); Protein, Urine 1+ (Neg); Urobilinogen, Urine 1+ (Normal)
[2023-01-27 15:24] VITALS: BP 49/22
[2023-01-27 15:31] LABS: U Amphetamine Screen Not Detected; U Barbituate Screen Not Detected; U Benzodiazapine Screen Not Detected; U Buprenorphine Screen Not Detected; U Cannabinoids Screen Not Detected; U Cocaine Screen Not Detected; U Methadone Screen Not Detected; U Methamphetamine Screen Not Detected; U Opiates Screen Not Detected; U Oxycodone Screen Not Detected; U Phencyclidine Screen Not Detected
[2023-01-27 15:32] LABS: Base Excess Venous -17.8 mmol/L; Bicarbonate Venous 11.9 mmol/L (24.0-30.0); PCO2 Venous 29.3 mmHg (38-42); pH Blood Venous 7.17 (7.34-7.37)
[2023-01-27 15:34] LABS: Ethanol (Alcohol), Blood, Med <3 mg/dL; Magnesium, Blood 1.6 mg/dL (1.6-2.4)
[2023-01-27 15:54] LABS: Alanine Aminotransfer (ALT/SGP 31 U/L (12-78); Albumin, Blood 1.4 g/dL (3.4-5.0); Albumin/Globulin Ratio 0.6 (0.8-1.8); Alk Phos 69 U/L (50-136); Anion Gap 8 mmol/L (6-16); Aspartate Aminotrans (AST/SGOT 25 U/L (12-37); Bilirubin, Total 0.6 mg/dL (0.1-1.0); Blood Urea Nitrogen 66 mg/dL (8-24); Bun/Creatinine Ratio 64.1 (12.0-20.0); CO2, Blood 13 mmol/L (21-32); Calcium, Blood <5.0 mg/dL (8.5-10.1); Chloride, Blood 126 mmol/L (98-108); Creatinine, Blood 1.03 mg/dL (0.60-1.20); Globulin, Blood 2.3 g/dL (2.2-4.0); Glomerular Filtration Rate 80 (60-); Glucose, Blood 113 mg/dL (70-99); Potassium, Blood 3.1 mmol/L (3.5-5.5); Sodium, Blood 147 mmol/L (136-145); Total Protein, Blood 3.7 g/dL (6.4-8.2)
== END 2023-01-27 17:30 ==
LOC: ER 14:30
PROVIDERS: Emergency Medicine
DX: T68.XXXA Hypothermia, initial encounter (principal); I46.8 Cardiac arrest due to other underlying condition; Z79.899 Other long term (current) drug therapy; Z79.82 Long term (current) use of aspirin; I10 Essential (primary) hypertension; G47.00 Insomnia, unspecified; I25.2 Old myocardial infarction
CPT/HCPCS: 31500; 51702; 80047; 80053; 82550; 82803; 83690; 83735; 84484; 85014; 85025; 92950; 93005; 93010; 94002; 96374-59; 96375-59; 99291-25; 99292; C1751; J0171; J0461; J2371; J7030; J7060